=== PATIENT | female | born 1940 | race Caucasian/White ===

== ENCOUNTER 2024-02-06 17:44 | Emergency (ER) | payer MEDICARE, BC ==
[~2024-02-06] VITALS: Ht 154.9 cm; Wt 63.5 kg
[~2024-02-06 17:44] MED LIST: [UNRECOGNIZED DRUG - CODE]; [UNRECOGNIZED DRUG - OTHER]; [UNRECOGNIZED DRUG - OTHER]
[2024-02-06 21:28] VITALS: BP 135/70; TEMP 98; O2SAT 98
== END 2024-02-06 21:29 | disposition home or self-care (01) ==
LOC: ER 17:48
DX: S80.02XA Contusion of left knee, initial encounter (principal); S40.212A Abrasion of left shoulder, initial encounter; M19.90 Unspecified osteoarthritis, unspecified site; Z98.890 Other specified postprocedural states; Z79.899 Other long term (current) drug therapy; W01.0XXA Fall on same level from slipping, tripping and stumbling without subsequent striking against object, initial encounter; Y93.89 Activity, other specified; Y92.89 Other specified places as the place of occurrence of the external cause; Y99.8 Other external cause status
CPT/HCPCS: 70450-TC; 70486-TC; 73030-TC; 73200-TC